=== PATIENT | male | born 1985 | race Caucasian/White ===

== ENCOUNTER 2024-01-18 06:20 | Emergency (ER) | payer OTHER ==
[~2024-01-18] VITALS: Ht 175.3 cm; Wt 78.0 kg
[2024-01-18 06:26] VITALS: O2SAT 100
[2024-01-18] MEDS ORDERED: ONDANSETRON HCL 4MG/2ML INJ IV ONE (06:30)
[2024-01-18 06:52] VITALS: BP 130/76; PULSE 86; RESP 24; TEMP 98
== END 2024-01-18 06:58 | disposition left against medical advice (07) ==
LOC: ER 06:20
DX: R07.89 Other chest pain (principal); I25.2 Old myocardial infarction; I10 Essential (primary) hypertension
CPT/HCPCS: 71045; 93005; 99283; Z7610